=== PATIENT | male | born 1970 | race Caucasian/White ===

== ENCOUNTER 2017-05-05 08:47 | Inpatient (IN) | payer BC ==
[~2017-05-05] VITALS: Ht 185.4 cm; Wt 164.7 kg
[2017-05-05] MEDS ORDERED: ASPIR 8181 MG PO (09:15)
[2017-05-05] MEDS ORDERED: LISINOPRIL2.5 MG PO (09:15)
[2017-05-05] MEDS ORDERED: SODIUM CHLORIDE 0.9% 1000ML 1,000 ML IV STA (09:27)
[2017-05-05] MEDS ORDERED: PANTOPRAZOLE 40 MG 10ML VIAL IV STA (09:27)
[2017-05-05] MEDS ORDERED: PANTOPRAZOLE INJ 40 MG in SODIUM CHLORIDE 0.9% 50ML 50 ML IV SCH ×2 (09:45→16:30)
[2017-05-05 10:09] LABS: ALANINE AMINOTRANSFERASE 24 IU/L (0-55); ALBUMIN 3.6 g/dL (3.5-5.0); ALKALINE PHOSPHATASE 53 IU/L (40-150); ANION GAP 12.8 mmol/L (8-16); BLOOD UREA NITROGEN 23 mg/dL (7-26); BUN/CREATININE RATIO 21 (6-25); CALCIUM 8.7 mg/dL (8.4-10.2); CARBON DIOXIDE 24 mmol/L (22-29); CHLORIDE 102 mmol/L (98-107); CREATININE, SERUM 1.11 mg/dL (0.72-1.25); EST GLOMERULAR FILTRATION RATE > 60 ML/MIN (60-); GLUCOSE 96 mg/dL (74-118); POTASSIUM 3.8 mmol/L (3.5-5.1); SODIUM 135 mmol/L (136-145)
[2017-05-05 10:13] LABS: INR 1.16; PROTHROMBIN TIME 13.9 seconds (11.9-14.5)
[2017-05-05 10:14] LABS: PARTIAL THROMBOPLASTIN TIME 28.1 seconds (23.8-35.5)
[2017-05-05 10:45] LABS: BASOPHILS # (AUTO) 0.1 (0.0-0.1); BASOPHILS % 1.3 % (0.0-1.0); EOSINOPHILS # (AUTO) 0.1 (0.0-0.4); EOSINOPHILS % 1.8 % (0.0-6.0); HEMATOCRIT 28.1 % (38.2-49.6); LYMPHOCYTES # (AUTO) 1.5 (1.0-3.2); LYMPHOCYTES % 20.9 % (18.0-39.1); MEAN CORPUSCULAR HEMOGLOBIN 28.7 pg (28-32); MEAN CORPUSCULAR VOLUME 89.5 fL (81-99); MONOCYTES # (AUTO) 0.5 (0.2-0.8); MONOCYTES % 7.5 % (4.4-11.3); NEUTROPHILS # (AUTO) 4.8 (2.1-6.9); NEUTROPHILS % 66.7 % (38.7-80.0); PLATELET COUNT 311 x10e3/uL (140-360); RED BLOOD COUNT 3.14 x10e6/uL (4.3-5.7); RED CELL DISTRIBUTION WIDTH 14.1 % (11.7-14.4)
[2017-05-05] MEDS ORDERED: SODIUM CHLORIDE 0.9% 250ML 250 ML IV ONE (11:15)
[2017-05-05] MEDS ORDERED: PANTOPRAZOLE INJ 80 MG in SODIUM CHLORIDE 0.9% 100 ML IV SCH (12:15)
[2017-05-05] MEDS: SODIUM CHLORIDE 0.9% 1000ML 1,000 ML IV SCH ×2 (13:19→19:55)
[2017-05-05 14:00] VITALS: BP 100/52
[2017-05-05] MEDS: PANTOPRAZOL 40MG/SOD CHL 0.9% 50 ML IV SCH ×2 (16:30→20:17)
[2017-05-05 16:55] VITALS: BP 138/63
[2017-05-05 17:59] LABS: HEMATOCRIT 25.2 % (38.2-49.6); HEMOGLOBIN 8.3 g/dL (14.0-18.0)
[2017-05-05 20:00] VITALS: BP 118/58
[2017-05-05 20:39] VITALS: BP 118/58
[2017-05-06] VITALS (7 sets, daily range): BP systolic 84–115; BP diastolic 54–60
[2017-05-06 00:57] LABS: HEMATOCRIT 23.6 % (38.2-49.6)
[2017-05-06 01:00] LABS: HEMOGLOBIN 7.7 g/dL (14.0-18.0)
[2017-05-06] MEDS: PANTOPRAZOL 40MG/SOD CHL 0.9% 50 ML IV SCH ×5 (01:43→22:05)
[2017-05-06] MEDS ORDERED: SODIUM CHLORIDE 0.9% 250ML 250 ML ONE (03:14)
[2017-05-06] MEDS: SODIUM CHLORIDE 0.9% 1000ML 1,000 ML IV SCH ×3 (04:55→19:14)
[2017-05-06 07:02] LABS: BASOPHILS # (AUTO) 0.1 (0.0-0.1); BASOPHILS % 1.2 % (0.0-1.0); EOSINOPHILS # (AUTO) 0.2 (0.0-0.4); EOSINOPHILS % 3.1 % (0.0-6.0); HEMATOCRIT 25.8 % (38.2-49.6); HEMOGLOBIN 8.5 g/dL (14.0-18.0); LYMPHOCYTES # (AUTO) 1.3 (1.0-3.2); LYMPHOCYTES % 25.7 % (18.0-39.1); MEAN CORPUSCULAR HEMOGLOBIN 29.3 pg (28-32); MEAN CORPUSCULAR HGB CONC 32.9 g/dL (31-35); MONOCYTES # (AUTO) 0.4 (0.2-0.8); MONOCYTES % 7.5 % (4.4-11.3); NEUTROPHILS # (AUTO) 3.2 (2.1-6.9); NEUTROPHILS % 61.7 % (38.7-80.0); PLATELET COUNT 255 x10e3/uL (140-360); RED CELL DISTRIBUTION WIDTH 14.1 % (11.7-14.4); RETICULOCYTE % 4.8 % (0.8-2.2)
[2017-05-06 07:25] LABS: % IRON SATURATION 13 % (15-50); BLOOD UREA NITROGEN 15 mg/dL (7-26); BUN/CREATININE RATIO 13 (6-25); CALCIUM 8.3 mg/dL (8.4-10.2); CARBON DIOXIDE 25 mmol/L (22-29); CHLORIDE 107 mmol/L (98-107); CREATININE, SERUM 1.15 mg/dL (0.72-1.25); EST GLOMERULAR FILTRATION RATE > 60 ML/MIN (60-); GLUCOSE 98 mg/dL (74-118); IRON 40 ug/dL (65-175); SODIUM 137 mmol/L (136-145); TOTAL IRON BINDING CAPACITY 297 ug/dL (261-478); TRANSFERRIN 212 mg/dL (174-364)
[2017-05-06 07:44] LABS: FERRITIN 67.83 ng/mL (21.81-274.66)
[2017-05-06 08:13] LABS: FOLATE 13.2 ng/mL (7.0-15.4)
[2017-05-06] MEDS ORDERED: PROPOFOL IV EMULSION 10 MG/ML 20 ML VIAL ONE (14:53)
[2017-05-06] MEDS ORDERED: LIDOCAINE HCL 2% LOCAL INJ 5 ML SDV VIAL INJ ONE (14:53)
--- NOTE | 2017-05-06 14:53 | Operative Report ---
DATE OF PROCEDURE: May 06, 2017 REFERRING PHYSICIAN: Dr. Iván Beaulieu and Dr. Isaak Judd. PROCEDURE PERFORMED: Esophagogastroduodenoscopy. INDICATIONS FOR ESOPHAGOGASTRODUODENOSCOPY: History of melena and anemia. MEDICATION: Patient was done under MAC. Please see anesthesiologist's note. PROCEDURE: With patient in the left lateral decubitus position, the flexible fiberoptic Olympus gastroscope was introduced into the esophagus under direct visualization without any difficulty. There was some patchy erythema noted in the distal esophagus. The scope was then advanced into the stomach. It appears this patient has had a vertical gastroplasty with the gastroplasty site at approximately 15 cm distal to the GE junction. At the site, a ? partially eroding ring-like structure was noted with some reddish-tinged blood overlying the site but no obvious ulceration or active bleeding. The mucosa overlying the antrum revealed some patchy erythema and low-grade to moderate edema, and biopsies were obtained and sent to stain for H. pylori. The pylorus was of normal contour and shape, was intubated with ease, and the scope was advanced all the way to the 2nd portion of the duodenum. The scope was then withdrawn slowly. Mucosa overlying the proximal 2nd portion and the duodenal bulb appeared to be within normal limits. The scope was then withdrawn. Patient tolerated the procedure well. IMPRESSION: 1. Distal esophagitis, mild. 2. Status post vertical gastroplasty with the gastroplasty site 15 cm distal to the GE junction. 3. ? Partially eroding ring-like structure at the gastroplasty site with some reddish-tinged blood overlying. No ulcerations nor actively bleeding lesion was noted. 4. Gastritis, antrum, biopsied. Biopsies sent to stain for H. pylori. PLAN: Follow up histology. Continue current therapy. Follow H\T\H. I will ask Dr. Bc Poole to see patient. Job#: [id number] cc:MD IVÁN WINKLER, DO BC POOLE MD
[2017-05-06 16:34] LABS: HEMOGLOBIN 9.4 g/dL (14.0-18.0)
[2017-05-06] MEDS ORDERED: MIDAZOLAM HCL 2 MG/2 ML VIAL ONE (17:51)
[2017-05-06] MEDS ORDERED: KETAMINE HCL INJ 50 MG/ML 10 ML VIAL ONE (17:51)
[2017-05-07] VITALS (7 sets, daily range): BP systolic 111–132; BP diastolic 58–87
[2017-05-07 00:40] LABS: HEMATOCRIT 27.9 % (38.2-49.6); HEMOGLOBIN 9.3 g/dL (14.0-18.0)
[2017-05-07] MEDS: PANTOPRAZOL 40MG/SOD CHL 0.9% 50 ML IV SCH ×5 (03:35→23:30)
[2017-05-07] MEDS: SODIUM CHLORIDE 0.9% 1000ML 1,000 ML IV SCH ×3 (03:35→15:00)
[2017-05-07] MEDS ORDERED: PEG (High)/E-LYTE SOLN 4,000 ML BTL PO ONE (04:45)
[2017-05-07 07:09] LABS: HEMATOCRIT 29.1 % (38.2-49.6); HEMOGLOBIN 9.5 g/dL (14.0-18.0)
--- NOTE | 2017-05-07 12:54 | Operative Report ---
DATE OF PROCEDURE: May 07, 2017 REFERRING PHYSICIAN: Dr. Iván Vieyra. PROCEDURE PERFORMED: Colonoscopy and polypectomy. INDICATIONS FOR COLONOSCOPY: Anemia. MEDICATION: Patient was done under MAC. Please see anesthesiologist's note. PROCEDURE: With the patient in the left lateral decubitus position, the flexible fiberoptic Olympus colonoscope was inserted into the rectum with ease and advanced all the way to the cecum. An approximately 6-mm sessile polyp was noted in the cecum, and that was snared. The ascending appeared to be within normal limits. One polyp was snared from the transverse colon. One polyp was snared from the descending colon. Diverticulosis was noted to involve the distal descending and the sigmoid colon. The rectum appeared to be within normal limits. The scope was then retroflexed into the distal rectum, and moderate-size internal hemorrhoids were noted, none of which was actively bleeding. The scope was then straightened out. The rectosigmoid area as well as the distal rectal area were decompressed. The scope was subsequently withdrawn. Patient tolerated the procedure well. IMPRESSION 1. Cecal polyp, snared. 2. Transverse colon polyps, snared. 3. Descending colon polyps, snared. 4. Diverticulosis. 5. Internal hemorrhoids, none actively bleeding. PLAN: Follow up histology. Initiate high-fiber, low-fat diet. Initiate high-fiber supplement. Patient will need a followup colonoscopy in 3 years. Job#: [id number] cc:IVÁN VIEYRA, MD CHEN SPENCER MD
[2017-05-07 13:07] LABS: HEMATOCRIT 30.8 % (38.2-49.6); HEMOGLOBIN 9.9 g/dL (14.0-18.0)
[2017-05-07] MEDS ORDERED: PROPOFOL IV EMULSION 10 MG/ML 50 ML VIAL ONE (17:37)
[2017-05-07] MEDS ORDERED: HYOSCYAMINE SULFATE 0.5 MG/ML AMP ONE (17:37)
[2017-05-07] MEDS ORDERED: LIDOCAINE HCL 2% LOCAL INJ 5 ML SDV VIAL INJ ONE (17:37)
[2017-05-07] MEDS ORDERED: FENTANYL CITRATE/PF 100MCG/2 ML INJ ONE (18:06)
[2017-05-07] MEDS ORDERED: MIDAZOLAM HCL 2 MG/2 ML VIAL ONE (18:06)
[2017-05-07 19:36] LABS: HEMATOCRIT 28.4 % (38.2-49.6); HEMOGLOBIN 9.2 g/dL (14.0-18.0)
[2017-05-08] VITALS: BP 109/57
[2017-05-08 01:02] LABS: HEMATOCRIT 26.8 % (38.2-49.6); HEMOGLOBIN 8.7 g/dL (14.0-18.0)
[2017-05-08] MEDS: SODIUM CHLORIDE 0.9% 1000ML 1,000 ML IV SCH (03:59)
[2017-05-08 04:00] VITALS: BP 103/56
[2017-05-08] MEDS: PANTOPRAZOL 40MG/SOD CHL 0.9% 50 ML IV SCH (04:31)
[2017-05-08 07:01] LABS: HEMATOCRIT 27.2 % (38.2-49.6); HEMOGLOBIN 8.9 g/dL (14.0-18.0)
[2017-05-08 07:51] VITALS: BP 118/65
[2017-05-08 09:51] VITALS: BP 118/65
[2017-05-08] MEDS ORDERED: PANTOPRAZOLE SO40 MG PO (10:04)
== END 2017-05-08 10:25 | disposition home or self-care (01) | DRG 378 ==
LOC: ER 08:47 → ERHOLD 12:21 → MED/SURG 13:17
PROC: 0DB78ZX Excision of Stomach, Pylorus, Via Natural or Artificial Opening Endoscopic, Diagnostic (ICD-10-PCS; 2017-05-06)
PROC: 30233N1 Transfusion of Nonautologous Red Blood Cells into Peripheral Vein, Percutaneous Approach (ICD-10-PCS; 2017-05-06)
PROC: 0DBM8ZX Excision of Descending Colon, Via Natural or Artificial Opening Endoscopic, Diagnostic (ICD-10-PCS; 2017-05-07)
PROC: 0DBL8ZX Excision of Transverse Colon, Via Natural or Artificial Opening Endoscopic, Diagnostic (ICD-10-PCS; 2017-05-07)
PROC: 0DBH8ZX Excision of Cecum, Via Natural or Artificial Opening Endoscopic, Diagnostic (ICD-10-PCS; principal; 2017-05-07 11:00)
DX: K92.1 Melena (principal); D62 Acute posthemorrhagic anemia; Z68.42 Body mass index [BMI] 45.0-49.9, adult; K57.90 Diverticulosis of intestine, part unspecified, without perforation or abscess without bleeding; K64.8 Other hemorrhoids; E66.8 Other obesity; K29.70 Gastritis, unspecified, without bleeding; K20.9 Esophagitis, unspecified; Z98.84 Bariatric surgery status; K63.5 Polyp of colon
CPT/HCPCS: 36415; 36430; 43239; 45385; 80048; 80053; 82607; 82728; 82746; 83540; 84466; 85014; 85018; 85025; 85045; 85610; 85730; 86850; 86900; 86920; 88305; 88312; 93005; 96366; 99284; J1980; J2001; J2250; J7030; J7050; P9016